=== PATIENT | female | born 1985 | race Caucasian/White ===

== ENCOUNTER 2018-02-15 20:18 | Emergency (ER) | payer BC ==
[2018-02-15 21:08] LABS: #Basophils 0.1 thou/uL (0.0-0.2); #Eosinphils 0.2 thou/uL (0.0-0.7); #Lymphocytes 1.7 thou/uL (1.20-3.40); #Monocytes 0.5 thou/uL (0.11-0.59); #Neutrophils 4.8 thou/uL (1.40-6.50); %Basophils 1.7 % (0.0-1.0); %Eosinophils 2.1 % (0.0-10.0); %Lymphocytes 23.1 % (21.0-51.0); %Monocytes 7.2 % (0.0-10.0); %Neutrophils 65.8 % (42.0-75.0); Hemoglobin 13.7 g/dL (12.0-16.0); Mean Corpuscular HGB CONC 34.8 g/dL (32.0-36.0); Mean Corpuscular Volume 86.1 fL (78.0-98.0); Mean Platelet Volume 7.2 fL (7.4-10.4); Platelet Count 215 thou/uL (130-400); Red Blood Cell (RBC) Count 4.58 mill/uL (4.20-5.40); White Blood Cell (WBC) Count 7.3 thou/uL (4.8-10.8)
[2018-02-15 21:09] LABS: PTT 26.2 SEC (22.9-36.1)
[2018-02-15 21:12] LABS: D-Dimer Test Less than 0.27 *mcg/mL (0.27-0.43)
[2018-02-15 21:12] LABS: Pregnancy Test - Urine (BHCG) Negative (Negative)
[2018-02-15 21:13] LABS: Pregu Control Background? CLEAR/WHITE (CLR/WHITE); Pregu Control Bar Appear? YES (CONTROL BAR); Specific Gravity 1.008 (1.002-1.036)
--- NOTE | 2018-02-15 21:16 | RAD ---
TWO VIEW CHEST: COMPARISON: 10/08/2015 FINDINGS: There is no evidence of consolidation, effusion, or pneumothorax. The cardiac silhouette is normal i n size. The osseous structures are intact. IMPRESSION: No focal consolidation. POS: [place]
[2018-02-15 21:22] LABS: ALT (SGPT) 41 U/L (8-55); AST (SGOT) 30 U/L (5-34); Albumin 4.5 g/dL (3.5-5.0); Alkaline Phosphatase 45 U/L (40-150); Anion Gap 18 mmol/L (10-20); BUN (Urea Nitrogen) 7 mg/dL (7.0-18.7); Bilirubin, Total 0.9 mg/dL (0.2-1.2); Calc. Creatinine Clearance 0 mL/min (70-130); Calcium 9.3 mg/dL (7.8-10.44); Carbon Dioxide 17 mmol/L (22-29); Chloride 109 mmol/L (98-107); Estimated GFR-MDRD 80; Globulin 2.5 g/dL (2.4-3.5); Glucose 110 mg/dL (70-105); Magnesium 2.3 mg/dL (1.6-2.6); Potassium 3.3 mmol/L (3.5-5.1); Sodium 141 mmol/L (136-145)
[2018-02-15 21:28] LABS: CKMB 0.7 ng/mL (0-6.6); Troponin I Less than 0.010 ng/mL (< 0.028)
[2018-02-15] MEDS ORDERED: Lorazepam 1 MG TAB ONE (21:46)
[2018-02-15] MEDS ORDERED: Potassium Chloride 20 MEQ TAB ONE (21:46)
== END 2018-02-15 21:57 | disposition short-term general hospital (02) ==
LOC: MADERS 20:18
DX: R07.89 Other chest pain (principal); F17.210 Nicotine dependence, cigarettes, uncomplicated
CPT/HCPCS: 36415; 71046; 80053; 81025; 82553; 83735; 84443; 84484; 85025; 85379; 85610; 85730; 93005

== ENCOUNTER 2018-08-11 12:05 | Emergency (ER) | payer BC ==
[2018-08-11] MEDS ORDERED: Dexamethasone 4 mg/ml Vial ONE (12:34)
== END 2018-08-11 13:00 | disposition home or self-care (01) ==
LOC: MADERS 12:05
DX: J45.909 Unspecified asthma, uncomplicated (principal); B34.9 Viral infection, unspecified; F17.210 Nicotine dependence, cigarettes, uncomplicated
CPT/HCPCS: 96372; J1100; J7620

== ENCOUNTER 2018-11-05 23:14 | Emergency (ER) | payer BC ==
[2018-11-05] MEDS ORDERED: Sodium Chloride 0.9% 1,000 ML ONE (23:39)
[2018-11-05] MEDS ORDERED: Ketorolac Tromethamine 30 MG/ML VIAL ONE (23:39)
[2018-11-05 23:52] LABS: #Basophils 0.1 thou/uL (0.0-0.2); #Eosinphils 0.2 thou/uL (0.0-0.7); #Lymphocytes 2.3 thou/uL (1.20-3.40); #Monocytes 0.4 thou/uL (0.11-0.59); #Neutrophils 4.3 thou/uL (1.40-6.50); %Basophils 1.6 % (0.0-1.0); %Eosinophils 2.3 % (0.0-10.0); %Lymphocytes 31.6 % (21.0-51.0); %Monocytes 5.8 % (0.0-10.0); %Neutrophils 58.8 % (42.0-75.0); Hemoglobin 14.4 g/dL (12.0-16.0); Mean Corpuscular HGB CONC 33.8 g/dL (32.0-36.0); Mean Corpuscular Hemoglobin 29.6 pg (27.0-31.0); Mean Corpuscular Volume 87.4 fL (78.0-98.0); Mean Platelet Volume 7.2 fL (7.4-10.4); Platelet Count 226 thou/uL (130-400); RBC Distribution Width 12.4 % (11.5-14.5); Red Blood Cell (RBC) Count 4.87 mill/uL (4.20-5.40); White Blood Cell (WBC) Count 7.2 thou/uL (4.8-10.8)
[2018-11-05 23:54] LABS: BHCG - Serum Negative (NEGATIVE); Pregs Control Background? CLEAR/WHITE (CLR/WHITE); Pregs Control Bar Appear? YES (CONTROL BAR)
[2018-11-05 23:58] LABS: Anion Gap 15 mmol/L (10-20); BUN (Urea Nitrogen) 9 mg/dL (7.0-18.7); Calc. Creatinine Clearance 0 mL/min (70-130); Calcium 8.8 mg/dL (7.8-10.44); Carbon Dioxide 20 mmol/L (22-29); Chloride 114 mmol/L (98-107); Estimated GFR-MDRD 88; Glucose 81 mg/dL (70-105); Sodium 145 mmol/L (136-145)
[2018-11-06] MEDS ORDERED: Adacel (T-DAP) 0.5 ML SYRINGE ONE
[2018-11-06] MEDS ORDERED: Morphine 4 MG/ML VIAL ONE (00:13)
== END 2018-11-06 00:35 | disposition short-term general hospital (02) ==
LOC: MADERS 23:14
DX: T20.07XA Burn of unspecified degree of neck, initial encounter (principal); T20.03XA Burn of unspecified degree of chin, initial encounter; T20.011A Burn of unspecified degree of right ear [any part, except ear drum], initial encounter; T22.011A Burn of unspecified degree of right forearm, initial encounter; T24.011A Burn of unspecified degree of right thigh, initial encounter; T31.11 Burns involving 10-19% of body surface with 10-19% third degree burns; F41.9 Anxiety disorder, unspecified; F32.9 Major depressive disorder, single episode, unspecified; F17.210 Nicotine dependence, cigarettes, uncomplicated; X02.0XXA Exposure to flames in controlled fire in building or structure, initial encounter
CPT/HCPCS: 36415; 80048; 84703; 85025; 90471; 90715; 96361; 96374; 96375; J1885; J2270; J7050

== ENCOUNTER 2019-11-28 22:58 | Emergency (ER) | payer BC ==
--- NOTE | 2019-11-29 00:01 | CT ---
Head CT without contrast: 11/28/2019 COMPARISON: None HISTORY: Trauma TECHNIQUE: Axial CT imaging at 5 mm intervals from vertex through skull base with coronal and sagitta l reformatted imaging FINDINGS: The visualized paranasal sinuses and mastoid air cells are well aerated. There is no displa carlitos calvarial fracture, intracranial hemorrhage, midline shift, or mass effect. IMPRESSION: No intracranial hemorrhage or displaced calvarial fracture.
--- NOTE | 2019-11-29 00:10 | CT ---
CT cervical spine without contrast: 11/28/2019 COMPARISON: None available HISTORY: Injury, trauma, pain TECHNIQUE: Axial CT imaging at 2.5 mm intervals through the cervical spine without contrast. Coronal and sagittal reformatted imaging obtained. FINDINGS: The C1 ring is intact. The occipital condyles, the dens, the C1-2 articulation, the cranioc ervical junction, the atlantoaxial interspace, and the cervicothoracic junction demonstrate no acute findings. No prevertebral soft tissue swelling. No anterolisthesis or retrolisthesis. No acute fracture or dislocation. Imaged lung apices are unremarkable. There is a low-density nodule within the right lobe of the thyroid gland measuring approximately 9 mm. IMPRESSION: No acute osseous abnormality. Incidental note made of a nodule within the right lobe of t he thyroid gland for which follow-up thyroid ultrasound is suggested.
== END 2019-11-29 01:45 | disposition home or self-care (01) ==
LOC: MADERS 22:58
DX: S06.0X9A Concussion with loss of consciousness of unspecified duration, initial encounter (principal); R11.0 Nausea; F41.9 Anxiety disorder, unspecified; F32.9 Major depressive disorder, single episode, unspecified; F17.210 Nicotine dependence, cigarettes, uncomplicated; V86.59XA Driver of other special all-terrain or other off-road motor vehicle injured in nontraffic accident, initial encounter
CPT/HCPCS: 70450; 72125; L0120

== ENCOUNTER 2022-08-04 10:09 | Emergency (ER) | payer OTHER | END 2022-08-04 11:57 | disposition home or self-care (01) | LOC: MADERS 10:09 | DX: J06.9 Acute upper respiratory infection, unspecified (principal); I10 Essential (primary) hypertension; F17.210 Nicotine dependence, cigarettes, uncomplicated; Z20.822 Contact with and (suspected) exposure to COVID-19 | CPT/HCPCS: 71046; 87804; U0003; U0005 ==

== ENCOUNTER 2023-12-26 22:17 | Emergency (ER) | payer OTHER ==
[2023-12-26 23:02] LABS: #Basophils 0.1 thou/uL (0.0-0.2); #Eosinphils 0.4 thou/uL (0.0-0.7); #Lymphocytes 1.9 thou/uL (1.20-3.40); #Monocytes 0.7 thou/uL (0.11-0.59); #Neutrophils 12.5 thou/uL (1.40-6.50); %Basophils 0.6 % (0.0-1.0); %Eosinophils 2.2 % (0.0-10.0); %Lymphocytes 12.2 % (21.0-51.0); %Monocytes 4.7 % (0.0-10.0); %Neutrophils 80.2 % (42.0-75.0); Hematocrit 46.5 % (36.0-47.0); Hemoglobin 14.9 g/dL (12.0-16.0); Mean Corpuscular Hemoglobin 29.1 pg (27.0-31.0); Mean Corpuscular Volume 91.1 fl (78.0-98.0); Mean Platelet Volume 7.3 fL (7.4-10.4); Platelet Count 206 10x3/uL (130-400); RBC Distribution Width 13.1 % (11.5-14.5); White Blood Cell (WBC) Count 15.6 10x3/uL (4.8-10.8)
[2023-12-26 23:17] LABS: BHCG - Serum Negative (NEGATIVE); Pregs Control Background? CLEAR/WHITE (CLR/WHITE); Pregs Control Bar Appear? YES (CONTROL BAR)
[2023-12-26 23:21] LABS: ALT (SGPT) 55 U/L (8-55); AST (SGOT) 43 U/L (5-34); Albumin 4.5 g/dL (3.5-5.0); Alkaline Phosphatase 55 U/L (40-110); Anion Gap 18 mmol/L (10-20); BUN (Urea Nitrogen) 8 mg/dL (7.0-18.7); Bilirubin, Total 0.5 mg/dL (0.2-1.2); CK (CPK) 86 U/L (29-168); Calc. Creatinine Clearance 0 mL/min (70-130); Calcium 9.1 mg/dL (7.8-10.44); Carbon Dioxide 19 mmol/L (22-29); Chloride 105 mmol/L (98-107); Estimated GFR 100; Globulin 2.7 g/dL (2.4-3.5); Glucose 93 mg/dL (70-105); Potassium 3.6 mmol/L (3.5-5.1); Protein, Total 7.2 g/dL (6.0-8.3); Sodium 138 mmol/L (136-145)
[2023-12-26 23:22] LABS: Acetaminophen Less than 10 mcg/mL (10.0-30.0); Alcohol 74.8 mg/dL (Less than 10); Magnesium 2.2 mg/dL (1.6-2.6); Salicylate Less than 8.0 mg/dL (15.0-30.0)
[2023-12-26] MEDS ORDERED: Acetaminophen 500 MG TAB ONE (23:41)
[2023-12-27 00:30] LABS: Amphetamine Not Detected (NotDetected); Barbiturates Screen Not Detected (NotDetected); Benzodiazepine Screen Not Detected (NotDetected); Cocaine Metabolite Screen Not Detected (NotDetected); Methadone Not Detected (NotDetected); Methamphetamine Not Detected (NotDetected); Opiate Screen Not Detected (NotDetected); Oxycodone Screen Not Detected (NotDetected); Phencyclidine (PCP) Not Detected (NotDetected); THC/Cannabinoid Screen Not Detected (NotDetected); Tricyclic Screen Not Detected (NotDetected)
[2023-12-27] MEDS ORDERED: diphenhydrAMINE 50 MG/ML VIAL ONE (00:42)
[2023-12-27] MEDS ORDERED: Ketorolac Tromethamine 30 MG (1 mL) VIAL ONE (00:42)
[2023-12-27] MEDS ORDERED: Metoclopramide HCl 10 MG (2 mL) VIAL ONE (00:42)
== END 2023-12-27 01:20 | disposition home or self-care (01) ==
LOC: MADERS 22:17
DX: R55 Syncope and collapse (principal); E86.0 Dehydration; I10 Essential (primary) hypertension; F17.210 Nicotine dependence, cigarettes, uncomplicated; Z79.899 Other long term (current) drug therapy
CPT/HCPCS: 36415; 80053; 80306; 80307; 82550; 83735; 84703; 85025; 93005; 96361; 96374; 96375; J1200; J1885; J2765

== ENCOUNTER 2024-01-08 15:58 | Emergency (ER) | payer OTHER ==
[2024-01-08] MEDS ORDERED: Cephalexin 500 MG CAP ONE (18:07)
[2024-01-08] MEDS ORDERED: Lidocaine 1% PF 5 ML VIAL ONE (18:08)
[2024-01-08] MEDS ORDERED: Bacitracin 1 PK ONE (18:08)
[2024-01-08] MEDS ORDERED: Boostrix 0.5 ML (Tdap) VIAL (>/=7 yrs of age) ONE (18:08)
== END 2024-01-08 19:30 | disposition home or self-care (01) ==
LOC: MADERS 15:58
DX: S61.212A Laceration without foreign body of right middle finger without damage to nail, initial encounter (principal); I10 Essential (primary) hypertension; F17.210 Nicotine dependence, cigarettes, uncomplicated; Z23 Encounter for immunization; Z79.899 Other long term (current) drug therapy; W25.XXXA Contact with sharp glass, initial encounter
CPT/HCPCS: 12001; 90471; 90715